=== PATIENT | male | born 1950 | race Caucasian/White ===

== ENCOUNTER 2017-10-27 20:28 | Inpatient (IN) | payer MEDICARE, OTHER ==
--- NOTE | 2017-10-27 21:33 | ED Physician Documentation ---
PD HPI URI - Stated complaint Stated Complaint: COUGH/CONFUSSION - Chief complaint Chief Complaint: Resp - History obtained from History obtained from: Patient - History of Present Illness Timing - onset: How many days ago (5) Timing duration: Days (5) Timing details: Gradual onset, Still present (worsening still) Associated symptoms: Fever, Nasal congestion, Rhinorrhea, Productive cough, Dyspnea. No: Hemoptysis, NVD, Bilateral edema Contributing factors: COPD / asthma (uses MDI at home (though was out of med recently), usually does not use neb nor oxygen.). No: Sick contact, Travel Worsened by: Activity Similar symptoms before: Diagnosis (COPD, pneumonia was similar in the past.) Recently seen: Clinic (Seen by Primary Care at 3 days ago and Rx Ventolin and Zithromax. Patient says is not improving and is having general weakness, some confusion, and worse wheezing/dyspnea.) Review of Systems Constitutional: reports: Fever, Chills, Myalgias Nose: reports: Rhinorrhea / runny nose. denies: Sinus pressure / pain Throat: denies: Sore throat Cardiac: denies: Chest pain / pressure, Palpitations Respiratory: reports: Dyspnea, Cough, Wheezing GI: reports: Nausea. denies: Abdominal Pain, Vomiting, Diarrhea Skin: denies: Rash, Lesions Musculoskeletal: reports: Extremity swelling (at times) Neurologic: reports: Generalized weakness, Confused (for past couple of days). denies: Focal weakness, Numbness, Headache, Head injury Endocrine: denies: Weight loss Immunocompromised: denies: Immunocompromised PD PAST MEDICAL HISTORY - Past Medical History Past Medical History: Yes Cardiovascular: Hypertension, High cholesterol, Peripheral Vascular Disease Respiratory: Asthma, COPD Endocrine/Autoimmune: Type 1 diabetes Musculoskeletal: Fibromyalgia - Past Surgical History Past Surgical History: Yes Ortho: Carpal Tunnel surgery - Allergies Allergies/Adverse Reactions: Allergies Allergy/AdvReac Type Severity Reaction Status Date / Time No Known Drug Allergies Allergy Verified 10/27/17 21:13 - Social History Does the pt smoke?: Yes Smoking Status: Current every day smoker Does the pt drink ETOH?: No Does the pt have substance abuse?: No - Family History Family history: reports: Non contributory - Immunizations Immunizations are current?: Yes - POLST Patient has POLST: No PD ED PE NORMAL - Vitals Vital signs reviewed: Yes (sats 85-87% RA; 93% on NC 2 lpm) - General General: Alert and oriented X 3, Well developed/nourished - HEENT HEENT: Ears normal, Pharynx benign, Other (somewhat unkempt. Smells of cigarettes. ) - Neck Neck: Supple, no meningeal sign, No adenopathy, No JVD - Cardiac Cardiac: RRR, No murmur - Respiratory Respiratory: No: Clear bilaterally (diffuse moderate wheezing and some coarse sounds right base. No fine crackles. Has some bronchial coarse sounds with coughing too. ) - Abdomen Abdomen: Soft, Non tender - Male Male : Deferred - Rectal Rectal: Deferred - Back Back: No CVA TTP - Derm Derm: Normal color, Warm and dry - Extremities Extremities: No tenderness to palpate, Normal ROM s pain, No edema, No calf tenderness / cord - Neuro Neuro: Alert and oriented X 3, No motor deficit, Normal speech Results - Vitals Vitals: Vital Signs - 24 hr 10/27/17 10/27/17 10/27/17 20:37 21:01 21:12 Temperature 36.8 C Heart Rate 87 86 Respiratory 16 16 Rate Blood Pressure 163/71 H 171/78 H O2 Saturation 87 L 99 10/27/17 10/27/17 10/27/17 21:38 22:02 22:16 Temperature Heart Rate 82 75 74 Respiratory 16 18 10 L Rate Blood Pressure 159/78 H 154/67 H O2 Saturation 93 93 10/27/17 10/27/17 22:36 22:55 Temperature Heart Rate 75 74 Respiratory 18 19 Rate Blood Pressure 145/63 H O2 Saturation 93 Oxygen O2 Source Nasal cannula Oxygen Flow Rate 2 - Labs Labs: Laboratory Tests 10/27/17 10/27/17 10/27/17 22:03 22:03 22:03 WBC 11.6 H RBC 4.90 Hgb 13.6 L Hct 42.7 MCV 87.1 MCH 27.8 MCHC 31.9 L RDW 14.1 Plt Count 170 MPV 8.7 Neut # 9.3 H Lymph # 1.2 L [place] # 1.0 Eos # 0.1 Baso # 0.0 Absolute Nucleated RBC 0.01 Nucleated RBC % 0.1 VBG pH VBG pCO2 VBG pO2 VBG HCO3 VBG Total CO2 VBG O2 Saturation VBG Base Excess Sodium 133 L Potassium 3.5 Chloride 91 L Carbon Dioxide 35 H Anion Gap 7.0 BUN 14 Creatinine 0.7 Estimated GFR (MDRD) 112 Glucose 342 H Lactic Acid 0.6 Calcium 8.4 L Magnesium 2.2 Total Bilirubin 0.6 AST 18 ALT 16 Alkaline Phosphatase 84 B-Natriuretic Peptide Total Protein 7.0 Albumin 3.3 Globulin 3.7 Albumin/Globulin Ratio 0.9 L Lipase 11 L Serum Ketones NEGATIVE 10/27/17 10/27/17 22:03 22:03 WBC RBC Hgb Hct MCV MCH MCHC RDW Plt Count MPV Neut # Lymph # [place] # Eos # Baso # Absolute Nucleated RBC Nucleated RBC % VBG pH 7.359 VBG pCO2 60.3 H VBG pO2 45.0 VBG HCO3 33.2 H VBG Total CO2 35.1 H VBG O2 Saturation 82.5 H VBG Base Excess 5.7 H Sodium Potassium Chloride Carbon Dioxide Anion Gap BUN Creatinine Estimated GFR (MDRD) Glucose Lactic Acid Calcium Magnesium Total Bilirubin AST ALT Alkaline Phosphatase B-Natriuretic Peptide 139 H Total Protein Albumin Globulin Albumin/Globulin Ratio Lipase Serum Ketones - Rads (name of study) chest Radiology: Prelim report reviewed (bronchiole thickening; no infiltrates.), EMP read contemporaneously (Some streaking infiltrates right lower lung field, in my opinion. ) PD MEDICAL DECISION MAKING - ED course Complexity details: reviewed results, re-evaluated patient (breathing easier and decreased wheezing after nebs. However still sats down to 85-87% RA with walking to bathroom. ), considered differential, d/w patient Departure - Departure Disposition: 66 [facility] DC/Xfer Clinical Impression: Acute exacerbation of COPD with asthma, Hypoxia, Hyperglycemia Acute bronchitis Qualifiers: Bronchitis organism: unspecified organism Qualified Code(s): J20.9 - Acute bronchitis, unspecified Diabetes Qualifiers: Diabetes mellitus type: type 1 Diabetes mellitus complication status: without complication Qualified Code(s): E10.9 - Type 1 diabetes mellitus without complications Condition: Stable Record reviewed to determine appropriate education?: Yes
[2017-10-27] MEDS ORDERED: IPRATROPIUM/ALBUTEROL 3 ML NEB INH STA (21:47)
[2017-10-27] MEDS ORDERED: cefTRIAXone 1 GM in SODIUM CHLORIDE 0.9% MINIBAG 100 ML IV STA (21:48)
[2017-10-27] MEDS ORDERED: SODIUM CHLORIDE 0.9% 1,000 ML IV ONE (21:48)
[2017-10-27 22:09] LABS: BASOPHILS % (AUTO) 0.2 %; EOSINOPHILS # (AUTO) 0.1 10^3/uL (0.0-0.7); EOSINOPHILS % (AUTO) 0.8 %; HGB - HEMOGLOBIN 13.6 g/dL (14.0-18.0); LYMPHOCYTES # (AUTO) 1.2 10^3/uL (1.5-3.5); LYMPHOCYTES % (AUTO) 10.1 %; MEAN CORPUSCULAR HEMOGLOBIN 27.8 pg (27.0-31.0); MEAN CORPUSCULAR HGB CONC 31.9 g/dL (32.0-36.0); MEAN CORPUSCULAR VOLUME 87.1 fL (80.0-94.0); MEAN PLATELET VOLUME 8.7 fL (7.4-11.4); MONOCYTES % (AUTO) 8.7 %; NEUTROPHILS # (AUTO) 9.3 10^3/uL (1.5-6.6); NEUTROPHILS % (AUTO) 80.2 %; PLT - PLATELET COUNT 170 10^3/uL (130-450); RED CELL DISTRIBUTION WIDTH 14.1 % (12.0-15.0); WHITE BLOOD COUNT 11.6 x10^3/uL (4.8-10.8)
[2017-10-27 22:18] LABS: KETONES, SERUM (ACETEST) NEGATIVE (NEGATIVE)
[2017-10-27 22:22] LABS: ALBUMIN 3.3 g/dL (3.2-5.5); ALBUMIN/GLOBULIN RATIO 0.9 (1.0-2.2); ALKALINE PHOSPHATASE 84 IU/L (42-121); ALT ALANINE AMINOTRANSFERASE 16 IU/L (10-60); AST ASPARTATE AMINOTRANSFERASE 18 IU/L (10-42); BILIRUBIN,TOTAL 0.6 mg/dL (0.2-1.0); BUN - BLOOD UREA NITROGEN 14 mg/dL (6-20); CALCIUM 8.4 mg/dL (8.5-10.3); CARBON DIOXIDE - CO2 35 mmol/L (21-32); CHLORIDE 91 mmol/L (101-111); CREATININE 0.7 mg/dL (0.6-1.2); GFR - MDRD 112 (>89); GLUCOSE 342 mg/dL (70-100); LIPASE 11 U/L (22-51); MAGNESIUM 2.2 mg/dL (1.7-2.8); SODIUM 133 mmol/L (135-145)
[2017-10-27 22:28] LABS: VBG BASE EXCESS 5.7 mmol/L (-2 - +2); VBG PCO2 60.3 mmHg (41-51); VBG PH 7.359 (7.31-7.41); VBG TOTAL CO2 35.1 mmol/L (24-29)
[2017-10-27] MEDS ORDERED: ALBUTEROL NEB 2.5 MG/3 ML INH STA (22:29)
--- NOTE | 2017-10-27 22:46 | XRAY Preliminary Report ---
Exam: XR CHEST 2 VIEW X-RAY IMPRESSION: 1. Bronchial wall thickening. This can be seen with bronchitis or reactive airways disease. [facility] SITE ID: [id number]
--- NOTE | 2017-10-27 22:46 | XRAY Report ---
EXAM: CHEST RADIOGRAPHY EXAM DATE: 10/27/2017 10:32 PM. CLINICAL HISTORY: Cough and dyspnea for several days. COMPARISON: 09/06/2011. TECHNIQUE: 2 views. FINDINGS: Lungs/Pleura: Large lung volumes. Bronchial wall thickening. No alveolar consolidation or pleural eff usion. No pneumothorax. Mediastinum: Heart and mediastinal contours are unremarkable. Other: None. IMPRESSION: 1. Bronchial wall thickening. This can be seen with bronchitis or reactive airways disease. [facility] Referring Provider Line: [phone] SITE ID: [id number]
[2017-10-27] MEDS ORDERED: DEXAMETHASONE 10 MG/ML VIAL IVP STA (23:04)
[2017-10-27] MEDS ORDERED: HYDROmorphone 2 MG/ML VIAL IVP STA (23:07)
[2017-10-27] MEDS ORDERED: IPRATROPIUM/ALBUTEROL 3 ML NEB INH PRN (23:25)
[2017-10-27] MEDS ORDERED: ZOLPIDEM 5 MG TABLET PO PRN (23:25)
[2017-10-27] MEDS ORDERED: ACETAMINOPHEN 325 MG TABLET PO PRN (23:25)
[2017-10-27] MEDS ORDERED: PROCHLORPERAZINE 10 MG/2 ML VIAL IVP PRN (23:25)
[2017-10-27] MEDS ORDERED: oxyCODONE 5 MG TABLET PO PRN (23:25)
[2017-10-27] MEDS ORDERED: ONDANSETRON 4 MG/2 ML VIAL IVP PRN (23:25)
--- NOTE | 2017-10-27 23:33 | HISTORY & PHYSICAL EXAMINATION ---
Chief Complaint - Chief Complaint Chief Complaint: Shortness of breath History of Present Illness - Admitted From Admitted From:: Emergency department - History Obtained From Records Reviewed: Yes History obtained from: Patient Exam Limitations: None - History of Present Illness HPI Comment/Other: Patient is a 67-year-old gentleman with a past medical history significant for type 1 diabetes on an insulin pump, COPD, tobacco abuse, hypertension, hyperlipidemia, chronic pain secondary to peripheral neuropathy on chronic opioids who presented to the emergency department with a chief complaint of shortness of breath. The patient states that he was in his normal state of health until last week when he states he began feeling as though he had a cold. He states that he felt weak and had cough that was productive and worsening over the course of the week. He states that 3 days ago his cough became so bad that he could not sleep at night. He states he also noted a fever that day so the next morning he went to go see his primary care doctor. He was prescribed a Z-Ayden and told he has bronchitis and sent home. The patient states he also was given a Ventolin inhaler. He states over the last 2 days he has been taking the Ventolin inhaler and it has given him some relief however he states that his cough has continued to get worse and he is becoming increasingly short of breath. He states that his shortness of breath is gotten to the point where just walking to the bathroom he becomes winded and has to catch his breath. He states he has also noticed that he has been having a lot of wheezing. He states that the last 3 nights he has been unable to sleep due to his shortness of breath and coughing. Today he comes into the emergency department as symptoms just are not improving. The patient also does describe some tightness in his chest but denies any chest pain. Patient denies any headaches, blurred vision, runny nose, sore throat, nasal congestion, difficulty swallowing, orthopnea, increased lower extremity swelling , abdominal pain, nausea, vomiting, diarrhea, constipation, urinary urgency, urinary frequency, dysuria, joint swelling, joint pain, neck stiffness, focal neurologic deficits, skin rashes, hair loss, recent unintentional weight loss or changes in his appetite. On presentation to the emergency department the patient was hypoxic with an oxygen saturation of 87% on room air. The patient was also hypertensive and appeared to be in some respiratory distress. The patient in the emergency department was given several nebulizer treatments and a dose of IV steroids with which the patient had very minimal improvement. The patient continued to have wheezing and continues to be hypoxic with exertion. The patient's chest x- ray showed some bronchial wall thickening consistent with bronchitis or reactive airway disease but the patient had no obvious infiltrates. The patient was afebrile and his leukocytosis was only mild with a WBC of 11.6. The patient otherwise had hyperglycemia and BNP was 139. Patient was admitted to the medical recio for COPD exacerbation. History - Past Medical History Cardiovascular: reports: Hypertension, High cholesterol Respiratory: reports: Asthma, COPD Endocrine/Autoimmune: reports: Type 1 diabetes Musculoskeletal: reports: Fibromyalgia MRSA Hx?: No Other Past Medical History: Peripheral neuropathy, Chronic pain on chronic opioids - Past Surgical History Ortho: reports: Carpal Tunnel surgery - Family & Social History Family History: Mother: Cancer (Mom has colon cancer and father had some type of unknown cancer), Father: , Cancer, ID Living arrangement: At home Living Situation: With spouse/s.o. Social History Notes: The patient has lived on [facility] for the last 20 years. He lives with his whom he has been to for the last 48 years. He has 3 children of his own and adopted his granddaughter. 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 He does smoke and has been smoking a pack a day for the last 14 years. Prior to that he had quit for 20 years but before he quit he was smoking 2 packs per day for about 10 years. He states he quit smoking again 3 days ago. He denies any alcohol or drug use. - POLST Patient has POLST: No POLST Status: Full Code Meds/Allgy - Allergies Allergies/Adverse Reactions: Allergies Allergy/AdvReac Type Severity Reaction Status Date / Time No Known Drug Allergies Allergy Verified 10/27/17 21:13 Review of Systems - Other Findings Other Findings: A comprehensive review of systems was performed the pertinent positives and negatives are stated above in the HPI and the remainder of the review of systems is negative. Exam - Vital Signs Reviewed Vital Signs: Yes Vital Signs: Vital Signs x48h Temp Pulse Resp BP Pulse Ox 10/27/17 23:25 36.6 C 10/27/17 22:55 74 19 10/27/17 22:36 75 18 145/63 H 93 10/27/17 22:16 74 10 L 154/67 H 93 10/27/17 22:02 75 18 10/27/17 21:38 82 16 159/78 H 93 10/27/17 21:12 171/78 H 10/27/17 21:01 86 16 99 10/27/17 20:37 36.8 C 87 16 163/71 H 87 L - Physical Exam General Appearance: positive: Alert, Mild distress (Respiratory) Eyes Bilateral: positive: Normal inspection, PERRL, EOMI, No lid inflammation, Conjunctivae nml, No scleral icterus ENT: positive: ENT inspection nml, Pharynx nml, Dry mucous membranes. negative : Purulent nasal drainage, Pharyngeal erythema, Oral lesions Neck: positive: Nml inspection, Thyroid nml, No JVD, Trachea midline. negative : Thyromegaly, Lymphadenopathy (R), Lymphadenopathy (L), Stiff neck, Carotid bruit, Tracheal deviation Respiratory: positive: Chest non-tender, Wheezes (Diffuse bilateral, expiratory) Cardiovascular: positive: Regular rate & rhythm, No murmur, No gallop Peripheral Pulses: positive: 2+ Abdomen: positive: Non-tender, No organomegaly, Nml bowel sounds, No distention Back: positive: Nml inspection. negative: CVA tenderness (R), CVA tenderness (L ) Skin: positive: Color nml, No rash, Warm. negative: Cyanosis, Diaphoresis, Pallor Extremities: positive: Non-tender, Full ROM, Nml appearance, Pedal edema Neurologic/Psychiatric: positive: Oriented x3, CN's nml (2-12), Motor nml, Sensation nml, Mood/affect nml Conclusion/Plan - Problem List (1) COPD exacerbation Conclusion/Plan: Patient presents with hypoxia, shortness of breath cough and cold-like symptoms for the last week. Appears the patient has a bronchitis which has led to COPD exacerbation. The patient was hypoxic on presentation and also had some hypercapnia on his VBG. The patient was also stating that he was lethargic and disoriented according to his yesterday. The patient continued to be hypoxic and wheezy even despite treatments in the emergency department with nebulizers and steroids. The patient was admitted for COPD exacerbation. Plan: Duo nebs around the clock 24 hours then every 4 hours as needed IV Solu-Medrol 40 mg 3 times daily Azithromycin 500 mg IV daily Supplemental oxygen Nicotine patch Patient advised to quit smoking Patient will likely need an inhaled corticosteroid and long-acting beta agonist at discharge. (2) Acute bronchitis Conclusion/Plan: Patient appears to have acute bronchitis on examination. He has significant coughing and chest x-ray also shows likely bronchitis. The patient appears to have COPD exacerbation secondary to his bronchitis. Plan: We will treat patient's COPD exacerbation with nebs, steroids and antibiotics as above. Patient will get symptomatic treatment for his cough with cough suppressant. Patient will receive supplemental oxygen. Qualifiers: Bronchitis organism: unspecified organism Qualified Code(s): J20.9 - Acute bronchitis, unspecified (3) Diabetes Conclusion/Plan: Patient has type 1 diabetes and is on an insulin pump. The patient is hyperglycemic on presentation likely due to his acute illness. Plan: Patient will be placed on a diabetic diet Patient will be continued on his insulin pump next line we will start a sliding scale insulin for supplemental insulin depending on his blood sugars Blood glucose check before meals at bedtime Hemoglobin A1c Qualifiers: Diabetes mellitus type: type 1 Diabetes mellitus complication status: with hyperglycemia Qualified Code(s): E10.65 - Type 1 diabetes mellitus with hyperglycemia (4) Hypertension Conclusion/Plan: Patient has a history of hypertension and is on 3 blood pressure medications at home including amlodipine and lisinopril he could not remember the third medication. We do not have his medications her medication doses at this time and his will bring in these tomorrow. Once we have his correct medications we will start him on those as he is on them at home. The patient's blood pressure will be monitored while he is hospital. Qualifiers: Hypertension type: essential hypertension Qualified Code(s): I10 - Essential (primary) hypertension (5) Hyperlipidemia Conclusion/Plan: The patient is on pravastatin at home for hyperlipidemia. He does not know his dose and does not have the medication with him but his will bring in the medication tomorrow. We will continue the patient on his home dose of statin. (6) Tobacco abuse Conclusion/Plan: Patient has history of tobacco abuse and smoked 1 pack a day until just 3 days ago. He states he has quit and is now using a nicotine patch. We did drug and alcohol counsellor him on the need to continue to hold off from smoking especially with this worsening COPD. We will continue the patient on a nicotine patch while he is hospitalized. (7) Chronic pain Conclusion/Plan: Patient has chronic pain secondary to peripheral neuropathy and is on very high doses of Dilaudid at home. The patient states that he takes 16 mg of Dilaudid in the morning and then again at 11 AM and then takes 24 mg at 3 PM and then an additional 8 mg at 3:30 PM. Given that these doses are so high we will wait to get his home medications from his to confirm these doses before starting them. In the meantime we will need to watch for any withdrawal symptoms. Qualifiers: Chronic pain type: other chronic pain Qualified Code(s): G89.29 - Other chronic pain - Lab Results Lab results reviewed: Yes Fish Bones: 10/27/17 22:03 10/27/17 22: Other Lab Results: Laboratory Results WBC 11.6 x10^3/uL (4.8-10.8) H 10/27/17 22: RBC 4.90 10^6/uL (4.70-6.10) 10/27/17 22:03 Hgb 13.6 g/dL (14.0-18.0) L 10/27/17 22:03 Hct 42.7 % (42.0-52.0) 10/27/17 22: MCV 87.1 fL (80.0-94.0) 10/27/17 22:03 MCH 27.8 pg (27.0-31.0) 10/27/17 22: MCHC 31.9 g/dL (32.0-36.0) L 10/27/17 22:03 RDW 14.1 % (12.0-15.0) 10/27/17 22:03 Plt Count 170 10^3/uL (130-450) 10/27/17 22:03 MPV 8.7 fL (7.4-11.4) 10/27/17 22:03 Neut # 9.3 10^3/uL (1.5-6.6) H 10/27/17 22:03 Lymph # 1.2 10^3/uL (1.5-3.5) L 10/27/17 22: [place] # 1.0 10^3/uL (0.0-1.0) 10/27/17 22:03 Eos # 0.1 10^3/uL (0.0-0.7) 10/27/17 22:03 Baso # 0.0 10^3/uL (0.0-0.1) 10/27/17 22:03 Absolute Nucleated RBC 0.01 x10^3/uL 10/27/17 22:03 Nucleated RBC % 0.1 /100WBC 10/27/17 22:03 VBG pH 7.359 (7.31-7.41) 10/27/17 22:03 VBG pCO2 60.3 mmHg (41-51) H 10/27/17 22:03 VBG pO2 45.0 mmHg (25-47) 10/27/17 22:03 VBG HCO3 33.2 mmol/L (23-28) H 10/27/17 22:03 VBG Total CO2 35.1 mmol/L (24-29) H 10/27/17 22:03 VBG O2 Saturation 82.5 % (60-80) H 10/27/17 22:03 VBG Base Excess 5.7 mmol/L (-2 - +2) H 10/27/17 22:03 Sodium 133 mmol/L (135-145) L 10/27/17 22:03 Potassium 3.5 mmol/L (3.5-5.0) 10/27/17 22:03 Chloride 91 mmol/L (101-111) L 10/27/17 22:03 Carbon Dioxide 35 mmol/L (21-32) H 10/27/17 22:03 Anion Gap 7.0 (6-13) 10/27/17 22:03 BUN 14 mg/dL (6-20) 10/27/17 22:03 Creatinine 0.7 mg/dL (0.6-1.2) 10/27/17 22:03 Estimated GFR (MDRD) 112 (>89) 10/27/17 22:03 Glucose 342 mg/dL (70-100) H 10/27/17 22:03 Lactic Acid 0.6 mmol/L (0.5-2.2) 10/27/17 22:03 Calcium 8.4 mg/dL (8.5-10.3) L 10/27/17 22:03 Magnesium 2.2 mg/dL (1.7-2.8) 10/27/17 22:03 Total Bilirubin 0.6 mg/dL (0.2-1.0) 10/27/17 22:03 AST 18 IU/L (10-42) 10/27/17 22:03 ALT 16 IU/L (10-60) 10/27/17 22:03 Alkaline Phosphatase 84 IU/L (42-121) 10/27/17 22:03 B-Natriuretic Peptide 139 pg/mL (5-100) H 10/27/17 22:03 Total Protein 7.0 g/dL (6.7-8.2) 10/27/17 22:03 Albumin 3.3 g/dL (3.2-5.5) 10/27/17 22:03 Globulin 3.7 g/dL (2.1-4.2) 10/27/17 22:03 Albumin/Globulin Ratio 0.9 (1.0-2.2) L 10/27/17 22:03 Lipase 11 U/L (22-51) L 10/27/17 22:03 Serum Ketones NEGATIVE (NEGATIVE) 10/27/17 22:03 - Diagnostic Imaging Results Diagnostic Imaging Results: positive: Final report reviewed Diagnostic Imaging Results Comments: Chest x-ray Impression: 1. Bronchial wall thickening. This can be seen with bronchitis or reactive airway disease. Core Measures - Anticipated LOS I expect patient to be DC'd or transferred within 96 hours.: Yes - DVT/VTE - Prophylaxis VTE/DVT Prophylaxis med ordered at admit?: Yes
[2017-10-28] MEDS ORDERED: guaiFENesin/CODEINE 5 ML UDC PO PRN (01:31)
[2017-10-28] MEDS: methylPREDNISolone SUCCINATE 40 MG/ML VIAL IVP SCH ×4 (01:38→21:00)
[2017-10-28] MEDS: SODIUM CHLORIDE FLUSH 0.9% 10 ML SYRINGE IVP SCH ×3 (01:38→17:21)
[2017-10-28] MEDS: NICOTINE 14 MG PATCH TOP SCH ×4 (02:33→21:08)
[2017-10-28 05:40] LABS: BASOPHILS % (AUTO) 0.2 %; LYMPHOCYTES # (AUTO) 0.5 10^3/uL (1.5-3.5); LYMPHOCYTES % (AUTO) 6.4 %; MEAN CORPUSCULAR HGB CONC 31.9 g/dL (32.0-36.0); MEAN CORPUSCULAR VOLUME 87.8 fL (80.0-94.0); MEAN PLATELET VOLUME 8.7 fL (7.4-11.4); MONOCYTES # (AUTO) 0.1 10^3/uL (0.0-1.0); MONOCYTES % (AUTO) 1.3 %; NEUTROPHILS # (AUTO) 7.9 10^3/uL (1.5-6.6); NEUTROPHILS % (AUTO) 92.1 %; PLT - PLATELET COUNT 173 10^3/uL (130-450); RED BLOOD COUNT 5.02 10^6/uL (4.70-6.10); WHITE BLOOD COUNT 8.6 x10^3/uL (4.8-10.8)
[2017-10-28 05:47] LABS: CALCIUM 8.3 mg/dL (8.5-10.3); CREATININE 0.5 mg/dL (0.6-1.2)
[2017-10-28] MEDS: SODIUM CHLORIDE FLUSH 0.9% 10 ML SYRINGE IVP PRN ×2 (06:32→14:23)
[2017-10-28] MEDS ORDERED: INSULIN ASPART 300 UNIT/3 ML PEN SUBQ SCH (08:00)
[2017-10-28 08:46] LABS: HB2 TOTAL 15.6 g/dL; HEMOGLOBIN A1C 1.08 g/dL; HEMOGLOBIN A1C % 8.5 % (4.6-6.2)
[2017-10-28] MEDS ORDERED: amLODIPine 5 MG TABLET PO ONE (09:13)
[2017-10-28] MEDS ORDERED: LISINOPRIL 20 MG TABLET PO ONE (09:13)
[2017-10-28] MEDS ORDERED: hydroCHLOROthiazide 25 MG TABLET PO ONE (09:14)
[2017-10-28] MEDS ORDERED: FLUoxetine 10 MG CAPSULE PO ONE (09:15)
[2017-10-28] MEDS ORDERED: CARVEDILOL 12.5 MG TABLET PO ONE (09:15)
[2017-10-28] MEDS ORDERED: HYDROmorphone 2 MG TABLET PO PRN (09:16)
[2017-10-28] MEDS: AZITHROMYCIN INJ 500 MG in SODIUM CHLORIDE 0.9% 250 ML IV SCH (09:19)
--- NOTE | 2017-10-28 09:25 | PROVIDER PROGRESS NOTE ---
Subjective - Prog Note Date Prog Note Date: 10/28/17 Prog Note Time: 09:19 - Subjective Pt reports feeling: Improved, No change Subjective: Benja complains of "not having enough pain medication". He denies SOB, chest pain, N/V or a new cough. Current Medications - Current Medications Current Medications: Active Medications Acetaminophen (Tylenol) 650 mg PO Q4HR PRN PRN Reason: Pain 1 to 4 Albuterol/Ipratropium (Duoneb) 3 ml INH RTQID PRN PRN Reason: Wheezing Albuterol/Ipratropium (Duoneb) 3 ml INH RTQID [facility] Stop: 10/29/17 06:59 Last Admin: 10/28/17 16:50 Dose: 3 ml Amlodipine Besylate (Norvasc) 5 mg PO BID [facility] Carvedilol (Coreg) 12.5 mg PO BID [facility] Enoxaparin Sodium (Lovenox) 40 mg SUBQ DAILY [facility] Last Admin: 10/28/17 10:14 Dose: 40 mg Famotidine (Pepcid) 20 mg PO DAILY [facility] Last Admin: 10/28/17 10:05 Dose: 20 mg Fluoxetine HCl (Prozac) 20 mg PO DAILY [facility] Guaifenesin/Codeine Phosphate (Robitussin Ac) 5 ml PO Q6HR PRN PRN Reason: Cough Hydrochlorothiazide (Hydrodiuril) 25 mg PO DAILY [facility] Hydromorphone HCl (Dilaudid) 8 mg PO Q3HR PRN PRN Reason: Severe Pain Last Admin: 10/28/17 17:20 Dose: 8 mg Azithromycin 500 mg/ Sodium (Chloride) 250 mls @ 250 mls/hr IV DAILY [facility] Last Infusion: 10/28/17 10:19 Dose: Infused Lisinopril (Zestril) 40 mg PO DAILY [facility] Methylprednisolone (Solu-Medrol (40mg Vial)) 40 mg IVP TID [facility] Last Admin: 10/28/17 14:20 Dose: 40 mg Nicotine (Nicoderm) 1 patch TOP DAILY [facility] Last Admin: 10/28/17 08:41 Dose: 1 patch Nicotine (Nicoderm) 1 patch TOP Q24H [facility] Last Admin: 10/28/17 16:46 Dose: Not Given Ondansetron HCl (Zofran Inj) 4 mg IVP Q6HR PRN PRN Reason: Nausea / Vomiting Oxycodone HCl (Roxicodone) 5 mg PO Q4HR PRN PRN Reason: Pain 5 to 7 Polyethylene Glycol (Miralax) 17 gm PO DAILY [facility] Last Admin: 10/28/17 10:17 Dose: Not Given Pravastatin Sodium (Pravachol) 20 mg PO QPM [facility] Prochlorperazine Edisylate (Compazine Inj) 10 mg IVP Q6HR PRN PRN Reason: Nausea / Vomiting Sodium Chloride (Normal Saline Flush 0.9%) 10 ml IVP PRN PRN PRN Reason: NEEDED PER PROVIDER ORDERS Last Admin: 10/28/17 14:23 Dose: 10 ml Sodium Chloride (Normal Saline Flush 0.9%) 10 ml IVP 0100,0900,1700 [facility] Last Admin: 10/28/17 17:21 Dose: 10 ml Zolpidem Tartrate (Ambien) 5 mg PO QPM PRN PRN Reason: Insomnia Albuterol Sulf [Ventolin Hfa Inhaler] 2 puffs INH Q6HR PRN 10/28/17 Amlodipine Besylate 5 mg PO BID 10/28/17 Carvedilol 12.5 mg PO BID 10/28/17 Cholecalciferol (Vitamin D3) [Vitamin D] 50,000 unit PO .TWICE WEEKLY 10/28/17 Fluoxetine HCl 20 mg PO DAILY 10/28/17 Hydromorphone HCl 2 - 3 tab PO Q6H PRN MDD 64 mg/day 10/28/17 Lisinopril 40 mg PO DAILY 10/28/17 Nicotine 14 mg Patch [Nicoderm] 1 each TOP Q24H 10/28/17 Pravastatin Sodium 20 mg PO QPM 10/28/17 hydroCHLOROthiazide [Hydrochlorothiazide] 25 mg PO DAILY 10/28/17 Objective - Vital Signs/Intake & Output Reviewed Vital Signs: Yes Vital Signs: Vital Signs x48h Temp Pulse Resp BP Pulse Ox 10/28/17 08:03 36.6 C 77 16 162/66 H 95 Intake & Output: Intake & Output 10/25/17 10/26/17 10/27/17 10/28/17 23:59 23:59 23:59 23:59 Intake Total 1000 220 Output Total 250 Balance 750 220 - Objective General Appearance: positive: Moderate distress, Anxious Eyes Bilateral: positive: Normal inspection, PERRL ENT: positive: ENT inspection nml, Pharynx nml, No signs of dehydration Neck: positive: Nml inspection, Thyroid nml, No JVD, Trachea midline Respiratory: positive: Chest non-tender, No respiratory distress, Breath sounds nml Cardiovascular: positive: Regular rate & rhythm, No gallop, Systolic murmur, Decreased pulse(s) Peripheral Pulses: 1+ Radial (R), 1+ Radial (L) Abdomen: positive: Non-tender, Nml bowel sounds, Other (rounded, soft) Back: positive: Nml inspection Skin: positive: No rash, Warm, Dry Extremities: positive: Non-tender, Full ROM, Pedal edema (mild, BLE) Neurologic/Psychiatric: positive: Oriented x3, CN's nml (2-12), Motor nml, Sensation nml, Depressed mood/affect Reflexes: Bicep (R): 4+, Bicep (L): 4+, Ankle (R): 4+, Ankle (L): 4+ - Lab Results Fish Bones: 10/28/17 05:17 10/28/17 05:17 Other Labs: Lab Results x24hrs 10/28/17 10/28/17 10/28/17 Range/Units 07:41 05:17 05:17 WBC (4.8-10.8) x10^3/uL RBC (4.70-6.10) 10^6/uL Hgb (14.0-18.0) g/dL Hct (42.0-52.0) % MCV (80.0-94.0) fL MCH (27.0-31.0) pg MCHC (32.0-36.0) g/dL RDW (12.0-15.0) % Plt Count (130-450) 10^3/uL MPV (7.4-11.4) fL Neut # (1.5-6.6) 10^3/uL Lymph # (1.5-3.5) 10^3/uL [place] # (0.0-1.0) 10^3/uL Eos # (0.0-0.7) 10^3/uL Baso # (0.0-0.1) 10^3/uL Absolute Nucleated RBC x10^3/uL Nucleated RBC % /100WBC Sodium 137 (135-145) mmol/L Potassium 3.8 (3.5-5.0) mmol/L Chloride 96 L (101-111) mmol/L Carbon Dioxide 34 H (21-32) mmol/L Anion Gap 7.0 (6-13) BUN 12 (6-20) mg/dL Creatinine 0.5 L (0.6-1.2) mg/dL Estimated GFR (MDRD) 166 (>89) Glucose 172 H (70-100) mg/dL POC Whole Bld Glucose 218 H (70 - 100) mg/dL Glycated Hemoglobin 8.5 H (4.6-6.2) % Estim Average Glucose 197 H (70-100) Calcium 8.3 L (8.5-10.3) mg/dL 10/28/17 10/28/17 Range/Units 05:17 02:47 WBC 8.6 (4.8-10.8) x10^3/uL RBC 5.02 (4.70-6.10) 10^6/uL Hgb 14.0 (14.0-18.0) g/dL Hct 44.0 (42.0-52.0) % MCV 87.8 (80.0-94.0) fL MCH 28.0 (27.0-31.0) pg MCHC 31.9 L (32.0-36.0) g/dL RDW 14.0 (12.0-15.0) % Plt Count 173 (130-450) 10^3/uL MPV 8.7 (7.4-11.4) fL Neut # 7.9 H (1.5-6.6) 10^3/uL Lymph # 0.5 L (1.5-3.5) 10^3/uL [place] # 0.1 (0.0-1.0) 10^3/uL Eos # 0.0 (0.0-0.7) 10^3/uL Baso # 0.0 (0.0-0.1) 10^3/uL Absolute Nucleated RBC 0.00 x10^3/uL Nucleated RBC % 0.1 /100WBC Sodium (135-145) mmol/L Potassium (3.5-5.0) mmol/L Chloride (101-111) mmol/L Carbon Dioxide (21-32) mmol/L Anion Gap (6-13) BUN (6-20) mg/dL Creatinine (0.6-1.2) mg/dL Estimated GFR (MDRD) (>89) Glucose (70-100) mg/dL POC Whole Bld Glucose 235 H (70 - 100) mg/dL Glycated Hemoglobin (4.6-6.2) % Estim Average Glucose (70-100) Calcium (8.5-10.3) mg/dL - Diagnostic Imaging Diagnostic Imaging Results: positive: Final report reviewed ABX Reporting Has patient been on IV antibiotics over the past 48 hours?: Yes Assessment/Plan - Problem List (1) COPD exacerbation Impression: The patient has just recently stopped using tobacco. He is prescribed a nicotine patch. He is being treated for COPD exac. by IV steroids, antibiotics , expectorants, and regular respiratory care using nebulizers. Plan: Continue treatment. (2) Hyperlipidemia Impression: The patient is prescribed a statin at home as per home med list. Plan: Continue medications. (3) Hypertension Impression: The patient is prescribed several antihypertensives at home including full dose norvasc, HCTZ, lisinopril and Coreg. Plan: Continue meds and monitor VS. Qualifiers: Hypertension type: essential hypertension Qualified Code(s): I10 - Essential (primary) hypertension (4) Hypoxia Impression: The patient was found to be hypoxic upon admission with an oxygen saturation of 87% on room air. He is not oxygen dependent. Plan: Treat COPD exacerbation and provide O2. (5) Tobacco dependence Impression: When asked why the patient chose to quit tobacco, he states, "I have just had enough". He was prescribed nicotine patches out patient that has continued here. Plan: Continue treatment. 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 I continues to wear a insulin pump. He is more susceptible to infection due to this high A1c. Plan: Continue BS checks, and consider discontinuing home pump while hospitalized due to evidence of uncontrolled DM. (7) Opiate addiction Impression: The patient claims that he has uncontrolled, chronic BLE neuropathy pain. He has great pulses to BLEs, and has no evidence of chronic circulatory issues in extremities. He sees a pain clinic and is prescribed a large amount of PO dilaudid. He says that he takes 24mg at night, and another 8mg tab an hour later. His brought in his medication bottle, that was locked up via pharmacy while hospitalized. Plan: Continue to monitor for suspicious activity.
[2017-10-28] MEDS: FAMOTIDINE 20 MG TABLET PO SCH (10:05)
[2017-10-28] MEDS: ENOXAPARIN 40 MG/0.4 ML SYRINGE SUBQ SCH (10:14)
[2017-10-28] MEDS: POLYETHYLENE GLYCOL 3350 17 GM PACKET PO SCH (10:17)
[2017-10-28] MEDS: IPRATROPIUM/ALBUTEROL 3 ML NEB INH SCH ×3 (10:30→22:08)
[2017-10-28 10:45] LABS: MUDS CUTOFF CONCENTRATIONS CUTOFF CONC BELOW:
[2017-10-28 10:52] LABS: BILIRUBIN,URINE NEGATIVE (NEGATIVE); GLUCOSE, URINE (UA) >=1000 mg/dL (NEGATIVE); KETONES,URINE (UA) NEGATIVE (NEGATIVE); LEUKOCYTE ESTERASE, URINE NEGATIVE (NEGATIVE); NITRITE,URINE NEGATIVE (NEGATIVE); OCCULT BLOOD,URINE TRACE-INTA (NEGATIVE); PH,URINE 7.5 PH (5.0-7.5); PROTEIN,URINE NEGATIVE (NEGATIVE); UROBILINOGEN,URINE 1 (NORMAL) E.U./dL (NORMAL)
[2017-10-28 10:53] LABS: CLARITY,URINE CLEAR (CLEAR)
[2017-10-28 11:01] LABS: COCAINE SCREEN URINE NEGATIVE (NEGATIVE); METHAMPHETAMINES SCREEN, URINE NEGATIVE (NEGATIVE); OPIATE SCREEN, URINE POSITIVE (NEGATIVE)
[2017-10-28 11:02] LABS: AMPHETAMINE SCREEN,URINE NEGATIVE (NEGATIVE); BENZODIAZEPINES SCREEN, URINE NEGATIVE (NEGATIVE); METHADONE SCREEN, URINE NEGATIVE (NEGATIVE); OXYCODONE SCREEN, URINE NEGATIVE (NEGATIVE); PROPOXYPHENE SCREEN, URINE NEGATIVE (NEGATIVE); TRICYCLIC ANTIDEPRESSANT,URINE NEGATIVE (NEGATIVE)
[2017-10-28] MEDS ORDERED: HYDROmorphone 2 MG TABLET PO ONE (16:44)
[2017-10-28] MEDS: HYDROmorphone 2 MG TABLET PO PRN (17:20)
[2017-10-28] MEDS: CARVEDILOL 12.5 MG TABLET PO SCH (21:00)
[2017-10-28] MEDS ORDERED: PRAVASTATIN 10 MG TABLET PO SCH (21:00)
[2017-10-28] MEDS: amLODIPine 5 MG TABLET PO SCH (21:00)
[2017-10-29] MEDS: SODIUM CHLORIDE FLUSH 0.9% 10 ML SYRINGE IVP SCH ×2 (01:07→08:21)
[2017-10-29 05:10] LABS: BASOPHILS % (AUTO) 0.3 %; HGB - HEMOGLOBIN 13.7 g/dL (14.0-18.0); LYMPHOCYTES # (AUTO) 1.2 10^3/uL (1.5-3.5); LYMPHOCYTES % (AUTO) 6.7 %; MEAN CORPUSCULAR HEMOGLOBIN 27.7 pg (27.0-31.0); MEAN CORPUSCULAR HGB CONC 31.7 g/dL (32.0-36.0); MEAN CORPUSCULAR VOLUME 87.3 fL (80.0-94.0); MEAN PLATELET VOLUME 8.8 fL (7.4-11.4); MONOCYTES # (AUTO) 0.9 10^3/uL (0.0-1.0); MONOCYTES % (AUTO) 5.3 %; NEUTROPHILS # (AUTO) 15.5 10^3/uL (1.5-6.6); NEUTROPHILS % (AUTO) 87.7 %; PLT - PLATELET COUNT 194 10^3/uL (130-450); RED BLOOD COUNT 4.97 10^6/uL (4.70-6.10); RED CELL DISTRIBUTION WIDTH 13.9 % (12.0-15.0); WHITE BLOOD COUNT 17.7 x10^3/uL (4.8-10.8)
[2017-10-29 05:21] LABS: CALCIUM 8.5 mg/dL (8.5-10.3); CREATININE 0.6 mg/dL (0.6-1.2)
[2017-10-29] MEDS: methylPREDNISolone SUCCINATE 40 MG/ML VIAL IVP SCH ×3 (05:37→10:27)
[2017-10-29] MEDS: SODIUM CHLORIDE FLUSH 0.9% 10 ML SYRINGE IVP PRN (05:38)
--- NOTE | 2017-10-29 07:20 | DISCHARGE SUMMARY ---
Discharge Summary Admit Date: 10/27/17 Discharge Date: 10/29/17 Discharging Provider: MIRELLA Lopez Primary Care Provider: Tip Field Code Status: Attempt Resuscitation Condition at Discharge: Good Discharge Disposition: 01 Home, Self Care - DIAGNOSES Admission Diagnoses: Chronic obstructive pulmonary disease with (acute) exacerbation (J44.1) Acute bronchitis, unspecified (J20.9) Type 2 diabetes mellitus without complications (E11.9) Essential (primary) hypertension (I10) Hyperlipidemia, unspecified (E78.5) Tobacco use (Z72.0) Other chronic pain (G89.29) Discharge Diagnoses with Status of Each Condition: COPD (J44.1) -chronic, stable. New home oxygen ordered. Chronic obstructive pulmonary disease (J44.9)- chronic, treatment to continue. Diabetes type 1-uncontrolled (E11.9)- chronic, needs follow up after this acute illness. Hypertension (I10) -chronic, stable. Hyperlipidemia (E78.5) -chronic, stable. Tobacco abuse (Z72.0) -chronic, attempting cessation. Chronic pain (G89.29) -chronic, stable. Acute bronchitis (J20.9) -new on this admit, treatment to continue. Opiate addiction (F11.20)- chronic, stable. - HPI History of Present Illness: Fabian Vela is a 67-year-old gentleman with a past medical history significant for type 1 diabetes on an insulin pump, COPD, tobacco abuse, hypertension, hyperlipidemia, chronic pain secondary to peripheral neuropathy on chronic opioids who presented to the emergency department with a chief complaint of shortness of breath. The patient states that he was in his normal state of health until last week when he began feeling as though he had a cold. Associated symptoms included; weakness, productive cough that became progressively worse over the past 3 days and preventing him from sleeping at night. He states he also noted a fever that day so the next morning he went to go see his primary care doctor. He was prescribed a Z-Ayden and a Ventolin rescue inhaler for bronchitis and sent home. He states over the last 2 days he has been taking the Ventolin inhaler and it has given him some relief however, his cough has continued to get worse with progressive shortness of breath. He states that his shortness of breath is gotten to the point where just walking to the bathroom he becomes winded and has to catch his breath. He states he has also noticed that he has been having a lot of wheezing. Today he comes into the emergency department as symptoms just are not improving. The patient also does described some tightness in his chest but denies any chest pain. Patient denies any headaches, blurred vision, runny nose, sore throat, nasal congestion, difficulty swallowing, orthopnea, increased lower extremity swelling , abdominal pain, nausea, vomiting, diarrhea, constipation, urinary urgency, urinary frequency, dysuria, joint swelling, joint pain, neck stiffness, focal neurologic deficits, skin rashes, hair loss, recent unintentional weight loss or changes in his appetite. On presentation to the emergency department the patient was hypoxic with an oxygen saturation of 87% on room air. The patient was also hypertensive and appeared to be in some respiratory distress. The patient in the emergency department was given several nebulizer treatments and a dose of IV steroids with which the patient had very minimal improvement. The patient continued to have wheezing and continues to be hypoxic with exertion. The patient's chest x- ray showed some bronchial wall thickening consistent with bronchitis or reactive airway disease but the patient had no obvious infiltrates. The patient was afebrile and his leukocytosis was only mild with a WBC of 11.6. The patient otherwise had hyperglycemia and BNP was 139. Patient was admitted to inpatient for COPD exacerbation. - HOSPITAL COURSE Hospital Course: The following diagnoses were prevalent during this hospital stay: (1) COPD exacerbation/chronic COPD Patient presents with hypoxia, shortness of breath cough and cold-like symptoms for the last week. He was treated for bronchitis which has led to COPD exacerbation. The patient was hypoxic on presentation with an oxygen saturation 87% on room air; and also had some hypercapnia on his VBG. Other symptoms included lethargy and mild disoriented according to his family. The patient continued to be hypoxic and wheezy even despite treatments in the emergency department with nebulizers and steroids, so was admitted for COPD exacerbation. He was given IV Solu-Medrol 40 mg 3 times daily, Azithromycin 500 mg IV daily, supplemental oxygen, nebulizer treatments, and continued on his Nicotine patch. His oxygen need continued and prior to discharge, a walking oxygen test was completed and the patient does in fact require home oxygen. A [id number]-[id number] exam was completed and I revealed the results that include; O2 saturation on room air at rest was 90%, heart rate of 78, oxygen saturation on room air with ambulation was 87%, heart rate of 91, oxygen saturation on 1L at rest was 91%, heart rate of 78, and an oxygen saturation on 1L with ambulation was 91%, heart rate up to 101. I am ordering oxygen to be used with ambulation @ 1L per nasal cannula. (2) Acute bronchitis Patient likely has acute bronchitis in combination with a COPD exacerbation based on imaging and exam findings of a persistent cough. The patient was treated with nebs, IV steroids, expectorants and IV antibiotics. He was also given supplemental oxygen continuously. This acute illness is considered stable at the time of discharge. Prescriptions have been sent to the pharmacy. (3) Diabetes type 1-uncontrolled Patient has type 1 diabetes and is on an insulin pump. The patient was hyperglycemic on presentation likely due to his acute illness. A hemoglobin A1c was elevated at 8.5% and his personal home insulin pump was continued while inpatient. His early AM sugar values have been greater than 200. He was given a diabetic diet and a nutritional consult for his uncontrolled blood glucose levels as evidenced by the elevated A1c. He claims, "I would rather be too high than too low". I suspect that this train of thought is somewhat influenced by his daily narcotic overload. (4) Hypertension-essential Patient has a history of hypertension and is on 3 blood pressure medications at home including amlodipine, lisinopril, and HCTZ. The patient's blood pressure was monitored while inpatient and was generally on the high side. The last recorded B/P was 165/82. I will double his HCTZ dose as his blood pressure has been elevated for his whole stay while inpatient. (5) Hyperlipidemia The patient is on pravastatin at home for hyperlipidemia, which was continued here. (6) Tobacco abuse Patient has history of tobacco abuse and smoked 1 pack a day until just 3 days prior to admission. He has been prescribed a nicotine patch out patient, which was continued while in the hospital. We did financial services counselor him on the need to continue to hold off from smoking especially with this worsening COPD. He now qualifies for supplemental home oxygen, so he as counseled about the dangers surrounding smoking/oxygen use. He appeared to be motivated and has a good plan in place to be successful. (7) Chronic pain Patient has chronic pain secondary to peripheral neuropathy and is on very high doses of Dilaudid at home. The patient states that he takes 16 mg of Dilaudid in the morning and then again at 11 AM and then takes 24 mg at 3 PM and then an additional 8 mg at 3:30 PM. Given that these doses are so high we were very precarious about scheduled doses. His brought in his original, prescribed dilaudid bottle, which was locked up by our pharmacy to prevent over dose. A [facility] query was obtained and revealed the prescriber as Dr. Christofer Bhat. It shows a pattern of 28-30 days each month and #[id number] tablets are dispensed. He was encouraged to attempt to wean off of these amounts as it is not safe for his breathing. (8) Opiate addiction The patient claims that he has uncontrolled, chronic BLE neuropathy pain. He has great pulses to BLEs, and has no evidence of chronic circulatory issues in extremities. He sees a pain clinic and is prescribed a large amount of PO dilaudid. He says that he takes 24mg at night, and another 8mg tab an hour later. His brought in his medication bottle, that was locked up via pharmacy while hospitalized. Disposition: The patient was very anxious about getting home. He was in stable condition, but still required oxygen. A walking saturation test indicates a need for home oxygen with ambulation, which was arranged prior to discharge. - ALLERGIES Allergies/Adverse Reactions: Allergies Allergy/AdvReac Type Severity Reaction Status Date / Time No Known Drug Allergies Allergy Verified 10/27/17 21:13 - MEDICATIONS Home Medications: Ambulatory Orders Medication Instructions Recorded Confirmed Albuterol Sulf [Ventolin Hfa 2 puffs INH Q6HR PRN 10/28/17 10/28/17 Inhaler] Amlodipine Besylate 5 mg PO BID 10/28/17 10/28/17 Carvedilol 12.5 mg PO BID 10/28/17 10/28/17 Cholecalciferol (Vitamin D3) 50,000 unit PO .TWICE WEEKLY 10/28/17 10/28/17 [Vitamin D3] Fluoxetine HCl 20 mg PO DAILY 10/28/17 10/28/17 Hydromorphone HCl 2 - 3 tab PO Q6H PRN MDD 64 mg/day 10/28/17 10/28/17 Lisinopril 40 mg PO DAILY 10/28/17 10/28/17 Nicotine 14 mg Patch [Nicoderm] 1 each TOP Q24H 10/28/17 10/28/17 Pravastatin Sodium 20 mg PO QPM 10/28/17 10/28/17 Fluticasone/Salmeterol [Advair 1 each IH BID #1 disk.w.dev 10/29/17 250-50 Diskus] Prednisone 10 mg PO DAILY 12 Days #39 10/29/17 tab.ds.pk Saccharomyces Boulardii [Florastor] 250 mg PO BID 20 Days #40 capsule 10/29/17 guaiFENesin [Mucinex] 600 mg PO BID #60 tablet 10/29/17 hydroCHLOROthiazide 25 mg PO BID #60 tablet 10/29/17 [Hydrochlorothiazide] levoFLOXacin [Levofloxacin] 500 mg PO DAILY 10 Days #10 tablet 10/29/17 - PHYSICAL EXAM AT DISCHARGE General Appearance: positive: No acute distress, Alert, Anxious Eyes Bilateral: positive: Normal inspection, PERRL ENT: positive: ENT inspection nml, Pharynx nml, Pharyngeal erythema, Dry mucous membranes Neck: positive: Nml inspection, Thyroid nml, No JVD, Trachea midline, Lymphadenopathy (R), Lymphadenopathy (L) Respiratory: positive: Chest non-tender, No respiratory distress, Wheezes, Rhonchi Cardiovascular: positive: Regular rate & rhythm, No murmur, No gallop Peripheral Pulses: positive: 1+ Abdomen: positive: Non-tender, No organomegaly, Nml bowel sounds, Other (rounded , soft. Umbilical hernia-stable, chronic) Back: positive: Nml inspection Skin: positive: No rash, Warm, Dry Extremities: positive: Non-tender, Full ROM, Pedal edema (chronic BLE-dependent) , Joint swelling Neurologic/Psychiatric: positive: Oriented x3, CN's nml (2-12), Motor nml, Sensation nml, Sensory loss, Slurred/abnml speech (related to chronic narcotic use.), Depressed mood/affect Reflexes: Bicep (R): 3+, Bicep (L): 3+, Ankle (R): 3+, Ankle (L): 3+ - LABS Result Diagrams: 10/29/17 04:55 10/29/17 04:55 - DIAGNOSTIC IMAGING Diagnostic Imaging Results: Final report reviewed Diagnostic Imaging Results Comments: EXAM: CHEST RADIOGRAPHY EXAM DATE: 10/27/2017 10:32 PM. CLINICAL HISTORY: Cough and dyspnea for several days. COMPARISON: 09/06/2011. TECHNIQUE: 2 views. FINDINGS: Lungs/Pleura: Large lung volumes. Bronchial wall thickening. No alveolar consolidation or pleural effusion. No pneumothorax. Mediastinum: Heart and mediastinal contours are unremarkable. Other: None. IMPRESSION: 1. Bronchial wall thickening. This can be seen with bronchitis or reactive airways disease. ECHOCARDIOGRAM 10/28/17-Preliminary. LV wall thickness is normal, normal function with an EF of ~65-70%. Severe RA enlargement. Trace mitral regurg. Insufficient TR jet to measure RVSP. No mass, thrombus, or pleural effusion was noted. - FOLLOW UP Follow Up: Disposition: Home, Self Care Condition: Good Prescriptions: Fluticasone/Salmeterol [Advair 250-50 Diskus] 1 each IH BID #1 disk.w.dev guaiFENesin [Mucinex] 600 mg PO BID #60 tablet levoFLOXacin [Levofloxacin] 500 mg PO DAILY 10 Days #10 tablet Prednisone 10 mg PO DAILY 12 Days #39 tab.ds.pk Saccharomyces Boulardii [Florastor] 250 mg PO BID 20 Days #40 capsule Diet: Carb controlled. Activity Restrictions: No Restrictions Instruction Topics: Prednisolone tablets, Saccharomyces boulardii Florastor oral dosage forms, Levofloxacin tablets, Fluticasone Salmeterol inhalation powder, Guaifenesin oral ER tablets, Oxygen Use Safety, Oxygen Home Dc Additional Instructions or Follow Up instructions: You were admitted for a COPD exacerbation and given IV antibiotics, IV steroids and nebulizers. The chest x-ray did not show pneumonia, although with your years of tobacco dependence, extra precautions were taken as you are more prone to developing pneumonia. You should continue on antibiotics and a small prednisone taper at home-to be started tomorrow. You should be on a long acting beta agonist and a rescue inhaler if needed. Advair prescription appears to be affordable as per your insurance and a preliminary phone call was made to Felix who claims that all medications will only cost ~$5 today. We left you on your usual insulin doses, but this needs further attention after you finish your prednisone taper. You qualified for supplemental home oxygen to be worn for shortness of breath and with activity. This has been ordered. Your blood pressure was elevated throughout your hospitalization, so I have doubled your HCTZ dose. An echocardiogram was completed due to your acute illness tachycardia, and HTN. The only abnormality noted on preliminary report was a severe right atrial enlargement-and I suspect this is an early sign caused by smoking. All of your valves are in good shape, and overall your heart is working as it should. You should see your PCP within one week. - TIME SPENT Time Spent in Discharge (Minutes): 45
--- NOTE | 2017-10-29 07:33 | Discharge Plan ---
Discharge Plan Disposition: Home, Self Care Condition: Good Prescriptions: Fluticasone/Salmeterol [Advair 250-50 Diskus] 1 each IH BID #1 disk.w.dev guaiFENesin [Mucinex] 600 mg PO BID #60 tablet hydroCHLOROthiazide [Hydrochlorothiazide] 25 mg PO BID #60 tablet levoFLOXacin [Levofloxacin] 500 mg PO DAILY 10 Days #10 tablet Prednisone 10 mg PO DAILY 12 Days #39 tab.ds.pk Saccharomyces Boulardii [Florastor] 250 mg PO BID 20 Days #40 capsule Diet: Regular Activity Restrictions: No Restrictions Shower Restrictions: No Driving Restrictions: No Weight Bearing: Full Weight Instruction Topics: Prednisolone tablets, Saccharomyces boulardii Florastor oral dosage forms, Levofloxacin tablets, Fluticasone Salmeterol inhalation powder, Guaifenesin oral ER tablets, Oxygen Use Safety, Oxygen Home Dc Additional Instructions or Follow Up instructions: You were admitted for a COPD exacerbation and given IV antibiotics, IV steroids and nebulizers. The chest x-ray did not show pneumonia, although with your years of tobacco dependence, extra precautions were taken as you are more prone to developing pneumonia. You should continue on antibiotics and a small prednisone taper at home-to be started tomorrow. You should be on a long acting beta agonist and a rescue inhaler if needed. Advair prescription appears to be affordable as per your insurance and a preliminary phone call was made to Felix who claims that all medications will only cost ~$5 today. We left you on your usual insulin doses, but this needs further attention after you finish your prednisone taper. You qualified for supplemental home oxygen to be worn for shortness of breath and with activity. This has been ordered. Your blood pressure was elevated throughout your hospitalization, so I have doubled your HCTZ dose. An echocardiogram was completed due to your acute illness tachycardia, and HTN. The only abnormality noted on preliminary report was a severe right atrial enlargement-and I suspect this is an early sign caused by smoking. All of your valves are in good shape, and overall your heart is working as it should. You should see your PCP within one week. Follow-Up Care: [facility] - Pulmonary, [facility] - Diabetes Ed No Smoking: If you smoke, Please STOP! Call for help. Follow-up with: Tip Field MD [Primary Care Provider] -
[2017-10-29] MEDS ORDERED: HYDROmorphone 2 MG TABLET PO SCH (07:34)
[2017-10-29] MEDS: HYDROmorphone 2 MG TABLET PO PRN (07:47)
[2017-10-29] MEDS: NICOTINE 14 MG PATCH TOP SCH (07:57)
[2017-10-29] MEDS: POLYETHYLENE GLYCOL 3350 17 GM PACKET PO SCH (07:57)
[2017-10-29 08:19] VITALS: BP 165/82
[2017-10-29] MEDS: FAMOTIDINE 20 MG TABLET PO SCH (08:20)
[2017-10-29] MEDS: amLODIPine 5 MG TABLET PO SCH (08:21)
[2017-10-29] MEDS: CARVEDILOL 12.5 MG TABLET PO SCH (08:21)
[2017-10-29] MEDS: ENOXAPARIN 40 MG/0.4 ML SYRINGE SUBQ SCH (08:21)
[2017-10-29] MEDS: AZITHROMYCIN INJ 500 MG in SODIUM CHLORIDE 0.9% 250 ML IV SCH (08:54)
[2017-10-29] MEDS ORDERED: LISINOPRIL 20 MG TABLET PO SCH (09:00)
[2017-10-29] MEDS ORDERED: hydroCHLOROthiazide 25 MG TABLET PO SCH (09:00)
[2017-10-29] MEDS ORDERED: FLUoxetine 10 MG CAPSULE PO SCH (09:00)
[2017-10-29] MEDS ORDERED: predniSONE 20 MG TABLET PO SCH (11:00)
[2017-10-29] MEDS ORDERED: HYDROmorphone 2 MG TABLET PO ONE (11:52)
[2017-10-29] MEDS ORDERED: levoFLOXacin 250 MG TABLET PO ONE (11:52)
== END 2017-10-29 12:45 | disposition home or self-care (01) | DRG 191 ==
LOC: ED 20:28 → MS3 23:25
PROVIDERS: ADMIT Internal Medicine; ATTEND Nurse Practitioner
DX: J44.1 Chronic obstructive pulmonary disease with (acute) exacerbation (principal); F11.20 Opioid dependence, uncomplicated; J20.9 Acute bronchitis, unspecified; J44.0 Chronic obstructive pulmonary disease with (acute) lower respiratory infection; R09.02 Hypoxemia; I10 Essential (primary) hypertension; E10.51 Type 1 diabetes mellitus with diabetic peripheral angiopathy without gangrene; F17.210 Nicotine dependence, cigarettes, uncomplicated; Z87.01 Personal history of pneumonia (recurrent); I11.9 Hypertensive heart disease without heart failure; E78.5 Hyperlipidemia, unspecified; E10.65 Type 1 diabetes mellitus with hyperglycemia; E10.42 Type 1 diabetes mellitus with diabetic polyneuropathy; G89.29 Other chronic pain; Z96.41 Presence of insulin pump (external) (internal); Z79.4 Long term (current) use of insulin; Z79.899 Other long term (current) drug therapy; Z72.0 Tobacco use
CPT/HCPCS: 36415; 71046; 80048; 80053; 80306; 81001; 81003; 82009; 82803; 83036; 83605; 83690; 83735; 83880; 85025; 87086; 93306; 94640; 94761; 96365; 96375; 99284; 99285; 99406

== ENCOUNTER 2018-10-20 21:03 | Emergency (ER) | payer MEDICARE, OTHER ==
[2018-10-20] MEDS ORDERED: SILVER SULFADIAZINE CREAM 25 GM TUBE TOP STA (21:49)
--- NOTE | 2018-10-20 21:52 | ED Physician Documentation ---
History of Present Illness - Stated complaint Stated Complaint: LT FOOT PX - Chief complaint Chief Complaint: Burn - History obtained from History obtained from: Patient, Family - History of Present Illness Timing: How many hours ago (1) Pain level max: 8 Pain level now: 6 Improved by: aloe vera, took home hydromorphone Worsened by: palpation - Additonal information Additional information: Patient dropped hot tea on the left foot today has a burn to the left foot. Review of Systems Constitutional: denies: Fever Skin: denies: Rash PD PAST MEDICAL HISTORY - Past Medical History Past Medical History: Yes Cardiovascular: Hypertension, High cholesterol Respiratory: Asthma, COPD Endocrine/Autoimmune: Type 1 diabetes Musculoskeletal: Fibromyalgia - Past Surgical History Past Surgical History: Yes Ortho: Carpal Tunnel surgery - Present Medications Home Medications: Ambulatory Orders Medication Instructions Recorded Confirmed Albuterol Sulf [Ventolin Hfa 2 puffs INH Q6HR PRN 10/28/17 10/28/17 Inhaler] Amlodipine Besylate 5 mg PO BID 10/28/17 10/28/17 Carvedilol 12.5 mg PO BID 10/28/17 10/28/17 Cholecalciferol (Vitamin D3) 50,000 unit PO .TWICE WEEKLY 10/28/17 10/28/17 [Vitamin D3] Fluoxetine HCl 20 mg PO DAILY 10/28/17 10/28/17 Hydromorphone HCl 2 - 3 tab PO Q6H PRN MDD 64 mg/day 10/28/17 10/28/17 Lisinopril 40 mg PO DAILY 10/28/17 10/28/17 Nicotine 14 mg Patch [Nicoderm] 1 each TOP Q24H 10/28/17 10/28/17 Pravastatin Sodium 20 mg PO QPM 10/28/17 10/28/17 Fluticasone/Salmeterol [Advair 1 each IH BID #1 disk.w.dev 10/29/17 250-50 Diskus] Prednisone 10 mg PO DAILY 12 Days #39 10/29/17 tab.ds.pk Saccharomyces Boulardii [Florastor] 250 mg PO BID 20 Days #40 capsule 10/29/17 guaiFENesin [Mucinex] 600 mg PO BID #60 tablet 10/29/17 hydroCHLOROthiazide 25 mg PO BID #60 tablet 10/29/17 [Hydrochlorothiazide] levoFLOXacin [Levofloxacin] 500 mg PO DAILY 10 Days #10 tablet 10/29/17 Silver Sulfadiazine [Silvadene] 1 applic TP BID PRN #1 cream..g. 10/20/18 - Allergies Allergies/Adverse Reactions: Allergies Allergy/AdvReac Type Severity Reaction Status Date / Time No Known Drug Allergies Allergy Verified 10/20/18 21:12 - Social History Does the pt smoke?: Yes Smoking Status: Current every day smoker Does the pt drink ETOH?: No Does the pt have substance abuse?: No - Immunizations Immunizations are current?: Yes Immunizations: TDAP current <10years - POLST Patient has POLST: No POLST Status: Full Code PD ED PE NORMAL - Vitals Vital signs reviewed: Yes - General General: Alert and oriented X 3, No acute distress - HEENT HEENT: Moist mucous membranes - Derm Derm: Warm and dry - Extremities Extremities: Other (L foot 1 percent partial thickness burn.) - Neuro Neuro: Alert and oriented X 3 Results - Vitals Vitals: Vital Signs - 24 hr 10/20/18 10/20/18 21:10 22:19 Temperature 36.2 C L 36.8 C Heart Rate 70 63 Respiratory 14 20 Rate Blood Pressure 171/70 H 143/67 H O2 Saturation 93 92 Oxygen O2 Source Room air PD MEDICAL DECISION MAKING - ED course Complexity details: re-evaluated patient, considered differential, d/w patient, d/w family ED course: 68-year-old male with a small burn to the left foot. Silvadene was placed on this. We will have him follow-up with his doctor for further care. Patient counseled regarding signs and symptoms for which I believe and urgent re- evaluation would be necessary. Patient with good understanding of and agreement to plan and is comfortable going home at this time This document was made in part using voice recognition software. While efforts are made to proofread this document, sound alike and grammatical errors may occur. Departure - Departure Disposition: 01 Home, Self Care Clinical Impression: Burn of foot Qualifiers: Encounter type: initial encounter Laterality: left Burn degree: partial thickness (2nd degree) Qualified Code(s): T25.222A - Burn of second degree of left foot, initial encounter Condition: Good Instructions: ED Burn Scald Follow-Up: Tip Field MD [Primary Care Provider] - Within 1 week (for wound check) Prescriptions: Silver Sulfadiazine [Silvadene] 1 applic TP BID PRN #1 cream..g. PRN Reason: burn Comments: Return if you worsen. Return especially if you notice redness swelling or drainage from the wound. Discharge Date/Time: 10/20/18 22:21
[2018-10-20 22:21] VITALS: BP 143/67
== END 2018-10-20 22:21 | disposition home or self-care (01) ==
LOC: ED 21:03
DX: T25.222A Burn of second degree of left foot, initial encounter (principal); T31.0 Burns involving less than 10% of body surface; X10.0XXA Contact with hot drinks, initial encounter; I10 Essential (primary) hypertension; E10.9 Type 1 diabetes mellitus without complications; F17.200 Nicotine dependence, unspecified, uncomplicated
CPT/HCPCS: 99282; 99283; A9270

== ENCOUNTER 2020-09-23 13:37 | Outpatient (CLI) | payer MEDICARE, OTHER ==
--- NOTE | 2020-09-23 16:29 | XRAY Report ---
PROCEDURE: Foot 3 View LT INDICATIONS: CONTUSION OF LEFT LESSER TOE WITHOUT DAMAGE TO NAIL TECHNIQUE: 3 views of the foot were acquired. COMPARISON: None FINDINGS: Bones: No fractures or dislocations. No suspicious bony lesions. Small plantar calcaneal bone spur. Soft tissues: No tibiotalar joint effusion. Achilles tendon appears normal. IMPRESSION: No fracture. No acute osseous lesion. If there persistent symptoms or continued clinical concern for pathology, then repeat plain film radiographs (7-10 days) or advanced imaging (CT, MR, bone scan) ann uld be considered for further evaluation. Reviewed by: Sarah Henderson MD, PhD on 09/23/2020 4:28 PM PDT Approved by: Sarah Henderson MD, PhD on 09/23/2020 4:28 PM PDT Station ID: [id number]
== END 2020-09-23 23:59 | disposition home or self-care (01) ==
LOC: DI.S 13:37
PROVIDERS: ATTEND Physician Assistant
DX: S90.122A Contusion of left lesser toe(s) without damage to nail, initial encounter (principal)

== ENCOUNTER 2022-02-04 21:03 | Emergency (ER) | payer MEDICARE, OTHER ==
[2022-02-04] MEDS ORDERED: IPRATROPIUM/ALBUTEROL 3 ML NEB INH STA (21:19)
[2022-02-04 21:48] LABS: BASOPHILS % (AUTO) 0.2 %; EOSINOPHILS % (AUTO) 0.3 %; HCT - HEMATOCRIT 40.2 % (42.0-52.0); HGB - HEMOGLOBIN 12.7 g/dL (14.0-18.0); LYMPHOCYTES # (AUTO) 0.8 10^3/uL (1.5-3.5); MEAN CORPUSCULAR HGB CONC 31.6 g/dL (32.0-36.0); MEAN CORPUSCULAR VOLUME 88.5 fL (80.0-94.0); MEAN PLATELET VOLUME 10.4 fL (7.4-11.4); MONOCYTES # (AUTO) 0.7 10^3/uL (0.0-1.0); MONOCYTES % (AUTO) 10.4 %; NEUTROPHILS # (AUTO) 4.7 10^3/uL (1.5-6.6); NEUTROPHILS % (AUTO) 75.6 %; PLT - PLATELET COUNT 121 10^3/uL (130-450); RED BLOOD COUNT 4.54 10^6/uL (4.70-6.10); RED CELL DISTRIBUTION WIDTH 14.2 % (12.0-15.0); WHITE BLOOD COUNT 6.2 x10^3/uL (4.8-10.8)
[2022-02-04 21:51] LABS: PT - PROTHROMBIN TIME 11.4 secs (9.9-12.6)
[2022-02-04 21:59] LABS: ALBUMIN 3.7 g/dL (3.2-5.5); ALBUMIN/GLOBULIN RATIO 1.3 (1.0-2.2); BILIRUBIN,TOTAL 0.5 mg/dL (0.2-1.0); CREATININE 0.8 mg/dL (0.6-1.2); PARTIAL THROMBOPLASTIN TIME 30.3 secs (24.9-33.3); TOTAL PROTEIN 6.6 g/dL (6.7-8.2)
[2022-02-04 22:04] LABS: CALCIUM 8.7 mg/dL (8.5-10.3); POTASSIUM 2.9 mmol/L (3.5-5.0)
[2022-02-04 22:22] LABS: BILIRUBIN,URINE NEGATIVE (NEGATIVE); GLUCOSE, URINE (UA) NEGATIVE (NEGATIVE); KETONES,URINE (UA) NEGATIVE (NEGATIVE); LEUKOCYTE ESTERASE, URINE NEGATIVE (NEGATIVE); NITRITE,URINE NEGATIVE (NEGATIVE); OCCULT BLOOD,URINE SMALL (NEGATIVE); PROTEIN,URINE 30 mg/dL (NEGATIVE); UROBILINOGEN,URINE 0.2 (NORMAL) E.U./dL (NORMAL)
--- NOTE | 2022-02-04 22:22 | XRAY Report ---
PROCEDURE: Chest 1 View X-Ray INDICATIONS: covid, hypoxia TECHNIQUE: One view of the chest was acquired. COMPARISON: None available at time of dictation. FINDINGS: Surgical changes and devices: None. Lungs and pleura: There is pulmonary vascular prominence suggestive of some edema. A few scattered i ndistinct opacities are demonstrated within the right lung. No pleural effusions or pneumothorax. Mediastinum: Mediastinal contours appear normal. Heart size is normal. Bones and chest wall: No suspicious bony lesions. Overlying soft tissues appear unremarkable. IMPRESSION: 1. Pulmonary vascular prominence suggestive of pulmonary edema. 2. Scattered indistinct opacities within the right lung are nonspecific but suggestive of atypical pn eumonia given clinical history. Reviewed by: Frandy Salter MD on 02/04/2022 10:21 PM PDT Approved by: Frandy Salter MD on 02/04/2022 10:21 PM PDT Station ID: [id number]
[2022-02-04 22:24] LABS: CLARITY,URINE CLEAR (CLEAR)
[2022-02-04 22:36] LABS: BACTERIA,URINE None Seen /HPF (None Seen); RBC,URINE 0-5 /HPF (0-5); SQUAMOUS EPITHELIAL CELL,UR NONE SEEN (<= Few); WBC,URINE 0-3 /HPF (0-3)
[2022-02-04 22:48] LABS: B. PARAPERTUSSIS- RESP PCR PAN NOT DETECTED; B. PERTUSSIS- RESP PCR PANEL NOT DETECTED; C. PNEUMONIAE- RESP PCR PANEL NOT DETECTED; CORONAVIRUS 229E-RESP PCR NOT DETECTED; CORONAVIRUS HKU1-RESP PCR NOT DETECTED; CORONAVIRUS NL63-RESP PCR NOT DETECTED; CORONAVIRUS OC43-RESP PCR NOT DETECTED; HUMAN METAPNEUMOVIRUS NOT DETECTED; INFLUENZA A- RESP PCR PANEL NOT DETECTED; INFLUENZA B - RESP PCR PANEL NOT DETECTED; M. PNEUMONIAE- RESP PCR PANEL NOT DETECTED; PARAINFLUENZA VIRUS 1 NOT DETECTED; PARAINFLUENZA VIRUS 2 NOT DETECTED; PARAINFLUENZA VIRUS 3 NOT DETECTED; PARAINFLUENZA VIRUS 4 NOT DETECTED; RHINOVIRUS/ENTEROVIRUS NOT DETECTED; RSV- RESP PCR PANEL NOT DETECTED; SARS-CoV-2 -RESP PCR PANEL DETECTED
[2022-02-04] MEDS ORDERED: NIRMATRELVIR/RITONAVIR PREPACK PO STA (23:04)
[2022-02-04] MEDS ORDERED: POTASSIUM CHLORIDE 20 MEQ TABLET PO STA (23:04)
[2022-02-04] MEDS ORDERED: AZITHROMYCIN 250 MG TABLET PO STA (23:05)
[2022-02-04] MEDS ORDERED: predniSONE 20 MG TABLET PO STA (23:18)
--- NOTE | 2022-02-05 00:31 | ED Physician Documentation ---
History of Present Illness - Stated complaint Stated Complaint: C+/SOA/HIGH BP - Chief complaint Chief Complaint: General - History obtained from History obtained from: Patient, Family - Additonal information Additional information: The patient is brought to the emergency department by his daughter for chief complaint of being COVID-positive and not thinking clearly. He is also been noted to have some lower oxygen saturations during the day than he normally does. Patient has a history of COPD and uses as needed oxygen at night. He has not generally used it during the day, though daughter states that he has complained of some shortness of breath and had sats in the upper 80s at that time. The patient states otherwise he is feeling fairly well. He states he feels a bit tired but that is it. The patient states he does not feel short of breath at all he does not know why his oxygen saturations been low. He has not had a fever. No nausea or vomiting. No chest pain. No other complaints at this time Review of Systems Ten Systems: 10 systems reviewed and negative Constitutional: reports: Reviewed and negative Eyes: reports: Reviewed and negative Ears: reports: Reviewed and negative Nose: reports: Reviewed and negative Throat: reports: Reviewed and negative Cardiac: reports: Reviewed and negative Respiratory: reports: Reviewed and negative GI: reports: Reviewed and negative : reports: Reviewed and negative Skin: reports: Reviewed and negative Musculoskeletal: reports: Reviewed and negative Neurologic: reports: Reviewed and negative Psychiatric: reports: Reviewed and negative Endocrine: reports: Reviewed and negative Immunocompromised: reports: Reviewed and negative PD PAST MEDICAL HISTORY - Past Medical History Past Medical History: Yes Cardiovascular: Hypertension, High cholesterol Respiratory: Asthma, COPD Neuro: None Endocrine/Autoimmune: Type 1 diabetes GI: None : None HEENT: None Psych: None Musculoskeletal: Fibromyalgia Derm: Eczema - Past Surgical History Past Surgical History: Yes Ortho: Carpal Tunnel surgery - Present Medications Home Medications: Ambulatory Orders Medication Instructions Recorded Confirmed Albuterol Sulf [Ventolin Hfa 2 puffs INH Q6HR PRN 10/28/17 02/04/22 Inhaler] Amlodipine Besylate 5 mg PO BID 10/28/17 02/04/22 Cholecalciferol (Vitamin D3) 50,000 unit PO .TWICE WEEKLY 10/28/17 02/04/22 [Vitamin D3] Fluoxetine HCl 20 mg PO DAILY 10/28/17 02/04/22 Hydromorphone HCl 2 - 3 tab PO Q6H PRN MDD 64 mg/day 10/28/17 02/04/22 Nicotine 14 mg Patch [Nicoderm] 1 each TOP Q24H 10/28/17 10/28/17 Pravastatin Sodium 20 mg PO QPM 10/28/17 02/04/22 carvediloL [Carvedilol] 12.5 mg PO BID 10/28/17 02/04/22 lisinopriL [Lisinopril] 40 mg PO DAILY 10/28/17 02/04/22 Fluticasone/Salmeterol [Advair 1 each IH BID #1 disk.w.dev 10/29/17 02/04/22 250-50 Diskus] Saccharomyces Boulardii [Florastor] 250 mg PO BID 20 Days #40 capsule 10/29/17 02/04/22 guaiFENesin [Mucinex] 600 mg PO BID #60 tablet 10/29/17 02/04/22 hydroCHLOROthiazide 25 mg PO BID #60 tablet 10/29/17 02/04/22 [Hydrochlorothiazide] Silver Sulfadiazine [Silvadene] 1 applic TP BID PRN #1 cream..g. 10/20/18 Insulin Aspart (Vial) [NovoLOG 75 units DAILY 02/04/22 02/04/22 (VIAL FOR ED USE)] Azithromycin [Zithromax] 0 mg PO DAILY #6 tablet 02/05/22 Potassium Chloride [K-Dur] 20 meq PO BIDWM #14 tablet 02/05/22 predniSONE [Deltasone] 60 mg PO DAILY 5 Days #15 tablet 02/05/22 - Allergies Allergies/Adverse Reactions: Allergies Allergy/AdvReac Type Severity Reaction Status Date / Time No Known Drug Allergies Allergy Verified 02/04/22 21:09 - Social History Does the pt smoke?: Yes Smoking Status: Current every day smoker Does the pt drink ETOH?: No Does the pt have substance abuse?: No - Immunizations Immunizations are current?: Yes Immunizations: TDAP current <10years - POLST Patient has POLST: No POLST Status: Full Code PD ED PE NORMAL - Vitals Vital signs reviewed: Yes - General General: Alert and oriented X 3, No acute distress, Well developed/nourished - HEENT HEENT: Atraumatic, PERRL, EOMI, Moist mucous membranes - Neck Neck: Supple, no meningeal sign - Cardiac Cardiac: RRR, No murmur - Respiratory Respiratory: No respiratory distress, Clear bilaterally - Abdomen Abdomen: Soft, Non tender, Non distended - Derm Derm: Normal color, Warm and dry, No rash - Extremities Extremities: No deformity, No edema - Neuro Neuro: Other (The patient is alert and answers questions appropriately. No gross deficits.) - Psych Psych: Normal mood, Normal affect Results - Vitals Vitals: Oxygen O2 Source Room air - Labs Labs: Microbiology 02/04/22 21:37 Blood Culture - Preliminary Blood - Left Hand NO GROWTH AFTER 2 DAYS 02/04/22 21:37 Blood Culture - Preliminary Blood - Right Hand NO GROWTH AFTER 2 DAYS Laboratory Tests 02/04/22 02/04/22 02/04/22 21:20 21:31 21:37 WBC 6.2 RBC 4.54 L Hgb 12.7 L Hct 40.2 L MCV 88.5 MCH 28.0 MCHC 31.6 L RDW 14.2 Plt Count 121 L MPV 10.4 Neut # (Auto) 4.7 Lymph # (Auto) 0.8 L [place] # (Auto) 0.7 Eos # (Auto) 0.0 Baso # (Auto) 0.0 Absolute Nucleated RBC 0.00 Nucleated RBC % 0.0 PT INR APTT Sodium Potassium Chloride Carbon Dioxide Anion Gap BUN Creatinine Estimated GFR (MDRD) Glucose Lactic Acid Calcium Total Bilirubin AST ALT Alkaline Phosphatase B-Natriuretic Peptide 123 H Total Protein Albumin Globulin Albumin/Globulin Ratio Lipase Urine Color Urine Clarity Urine pH Ur Specific [place] Urine Protein Urine Glucose (UA) Urine Ketones Urine Occult Blood Urine Nitrite Urine Bilirubin Urine Urobilinogen Ur Leukocyte Esterase Urine RBC Urine WBC Ur Squamous Epith Cells Urine Bacteria Ur Microscopic Review Urine Culture Comments Nasal Adenovirus (PCR) NOT DETECTED Nasal B. parapertussis DNA (PCR) NOT DETECTED Nasal Coronavir 229E PCR NOT DETECTED Nasal Coronavir HKU1 PCR NOT DETECTED Nasal Coronavir NL63 PCR NOT DETECTED Nasal Coronavir OC43 PCR NOT DETECTED Nasal Enterovir/Rhinovir PCR NOT DETECTED Nasal Influenza B PCR NOT DETECTED Nasal Influenza A PCR NOT DETECTED Nasal Parainfluen 1 PCR NOT DETECTED Nasal Parainfluen 2 PCR NOT DETECTED Nasal Parainfluen 3 PCR NOT DETECTED Nasal Parainfluen 4 PCR NOT DETECTED Nasal RSV (PCR) NOT DETECTED Nasal B.pertussis DNA PCR NOT DETECTED Nasal C.pneumoniae (PCR) NOT DETECTED Brennon Human Metapneumo PCR NOT DETECTED Nasal M.pneumoniae (PCR) NOT DETECTED Nasal SARS-CoV-2 (PCR) DETECTED A 02/04/22 02/04/22 02/04/22 21:37 21:37 21:37 WBC RBC Hgb Hct MCV MCH MCHC RDW Plt Count MPV Neut # (Auto) Lymph # (Auto) [place] # (Auto) Eos # (Auto) Baso # (Auto) Absolute Nucleated RBC Nucleated RBC % PT 11.4 INR 1.0 APTT 30.3 Sodium 138 Potassium 2.9 L Chloride 90 L Carbon Dioxide 37 H Anion Gap 11.0 BUN 22 H Creatinine 0.8 Estimated GFR (MDRD) 95 Glucose 212 H Lactic Acid 0.9 Calcium 8.7 Total Bilirubin 0.5 AST 34 ALT 26 Alkaline Phosphatase 60 B-Natriuretic Peptide Total Protein 6.6 L Albumin 3.7 Globulin 2.9 Albumin/Globulin Ratio 1.3 Lipase 17 L Urine Color Urine Clarity Urine pH Ur Specific [place] Urine Protein Urine Glucose (UA) Urine Ketones Urine Occult Blood Urine Nitrite Urine Bilirubin Urine Urobilinogen Ur Leukocyte Esterase Urine RBC Urine WBC Ur Squamous Epith Cells Urine Bacteria Ur Microscopic Review Urine Culture Comments Nasal Adenovirus (PCR) Nasal B. parapertussis DNA (PCR) Nasal Coronavir 229E PCR Nasal Coronavir HKU1 PCR Nasal Coronavir NL63 PCR Nasal Coronavir OC43 PCR Nasal Enterovir/Rhinovir PCR Nasal Influenza B PCR Nasal Influenza A PCR Nasal Parainfluen 1 PCR Nasal Parainfluen 2 PCR Nasal Parainfluen 3 PCR Nasal Parainfluen 4 PCR Nasal RSV (PCR) Nasal B.pertussis DNA PCR Nasal C.pneumoniae (PCR) Brennon Human Metapneumo PCR Nasal M.pneumoniae (PCR) Nasal SARS-CoV-2 (PCR) 02/04/22 22:08 WBC RBC Hgb Hct MCV MCH MCHC RDW Plt Count MPV Neut # (Auto) Lymph # (Auto) [place] # (Auto) Eos # (Auto) Baso # (Auto) Absolute Nucleated RBC Nucleated RBC % PT INR APTT Sodium Potassium Chloride Carbon Dioxide Anion Gap BUN Creatinine Estimated GFR (MDRD) Glucose Lactic Acid Calcium Total Bilirubin AST ALT Alkaline Phosphatase B-Natriuretic Peptide Total Protein Albumin Globulin Albumin/Globulin Ratio Lipase Urine Color YELLOW Urine Clarity CLEAR Urine pH 7.0 Ur Specific [place] 1.020 Urine Protein 30 H Urine Glucose (UA) NEGATIVE Urine Ketones NEGATIVE Urine Occult Blood SMALL H Urine Nitrite NEGATIVE Urine Bilirubin NEGATIVE Urine Urobilinogen 0.2 (NORMAL) Ur Leukocyte Esterase NEGATIVE Urine RBC 0-5 Urine WBC 0-3 Ur Squamous Epith Cells NONE SEEN Urine Bacteria None Seen Ur Microscopic Review INDICATED Urine Culture Comments NOT INDICATED Nasal Adenovirus (PCR) Nasal B. parapertussis DNA (PCR) Nasal Coronavir 229E PCR Nasal Coronavir HKU1 PCR Nasal Coronavir NL63 PCR Nasal Coronavir OC43 PCR Nasal Enterovir/Rhinovir PCR Nasal Influenza B PCR Nasal Influenza A PCR Nasal Parainfluen 1 PCR Nasal Parainfluen 2 PCR Nasal Parainfluen 3 PCR Nasal Parainfluen 4 PCR Nasal RSV (PCR) Nasal B.pertussis DNA PCR Nasal C.pneumoniae (PCR) Bren[place] Human Metapneumo PCR Nasal M.pneumoniae (PCR) Nasal SARS-CoV-2 (PCR) - Rads (name of study) Chest x-ray Radiology: Final report received, EMP read indepedently, See rad report (Mild vascular prominence and nonspecific scattered opacities right lung.) PD MEDICAL DECISION MAKING - ED course Complexity details: reviewed results, re-evaluated patient, considered differential, d/w patient ED course: The patient was treated with Paxlovid, steroids, and a DuoNeb, and was worked up with labs and chest x-ray. The patient did not really have any symptoms except for feeling tired. I discussed with the patient's daughter that the patient may need to wear his oxygen during the day while he is sick. His x-ray actually looks fairly good. The patient wished to go home and I felt this was reasonable. We have discussed the usual indications for return. Departure - Departure Disposition: 01 Home, Self Care Clinical Impression: COVID, Hypokalemia Condition: Stable Instructions: ED Potassium Deficiency, ED Viral Syndrome Prescriptions: predniSONE [Deltasone] 60 mg PO DAILY 5 Days #15 tablet Potassium Chloride [K-Dur] 20 meq PO BIDWM #14 tablet Azithromycin [Zithromax] 0 mg PO DAILY #6 tablet Comments: Your COVID test was positive. The x-ray showed a mild amount of inflammation and because of this, we will also put you on an antibiotic against atypical bacteria. You have been started on the Paxlovid, the medication helps the body fight the COVID virus. You have been started on a steroid to help with inflammation in your lungs, as well. Your potassium was found to be low and you have been started on replacement for this, which we will only take for the next week. Please be sure to get plenty of rest and plenty of fluids to drink. Wear your oxygen as needed. Please also plan to take your inhalers throughout the day while awake. You should take 2 puffs first thing in the morning and every 4 hours thereafter until you go to bed again. Your prescriptions of been electronically transmitted to [facility]. Discharge Date/Time: 02/05/22 00:46
[2022-02-05 00:32] VITALS: BP 156/69
== END 2022-02-05 00:46 | disposition home or self-care (01) ==
LOC: ED 21:03
DX: U07.1 COVID-19 (principal); E87.6 Hypokalemia; I10 Essential (primary) hypertension; E10.9 Type 1 diabetes mellitus without complications; Z79.4 Long term (current) use of insulin; F17.200 Nicotine dependence, unspecified, uncomplicated
CPT/HCPCS: 36415; 71045; 80053; 81001; 83605; 83690; 83880; 85025; 85610; 85730; 87040; 87633; 94640; 94664; 99283; 99284; A9270; J3490; J7512; 81003; 87086

== ENCOUNTER 2023-06-14 23:51 | Outpatient (CLI) | payer MEDICARE, OTHER | END 2023-06-14 23:59 | disposition EMS.NT | LOC: EMS 23:51 | DX: E11.65 Type 2 diabetes mellitus with hyperglycemia (principal); Z79.4 Long term (current) use of insulin ==